=== PATIENT | male | born 1960 | race Caucasian/White ===

== ENCOUNTER → 2020-04-11 10:26 | Outpatient (CLI) | payer OTHER, SELFPAY ==
[2020-04-11 11:27] LABS: Hematocrit 42.6 % (41-53); Hemoglobin 14.7 g/dL (13.5-17.5); Mean Corpuscular HGB Conc 34.5 % (30-36); Mean Corpuscular Hemoglobin 34.7 PG (26-34); Mean Corpuscular Volume 100.7 fL (80-100); Platelet Count 181 X10^3/uL (150-400); Red Blood Cell Count 4.23 X10^6/uL (4.5-5.9); Red Cell Distribution Width 12.6 % (11.6-14.8); White Blood Cell Count 4.1 X10^3/uL (4.5-11.0)
[2020-04-11 12:01] LABS: Alanine Aminotransferase 50 IU/L (<50); Albumin 4.2 g/dL (3.5-5.0); Albumin Globulin Ratio 1.6 (1.0-2.8); Alkaline Phosphatase 114 U/L (38-126); Aspartate Aminotransferase 45 IU/L (17-59); BUN Creatinine Ratio 32.3 (6-22); Bilirubin Total 0.5 mg/dL (0.2-1.3); Blood Urea Nitrogen 21 mg/dL (9-20); Calcium 9.6 mg/dL (8.4-10.2); Carbon Dioxide 26 mmol/L (22-32); Chloride 107 mmol/L (98-107); Cholesterol 215 mg/dL (140-199); Estimated Glomerular Filt Rate > 60.0 mL/min (>60); Globulin 2.7 g/dL (1.7-4.1); Glucose 106 mg/dL (80-110); HDL Cholesterol 58 mg/dL (40-60); HEMOLYSIS < 15 (0-50); LDL Cholesterol Calculated 132 mg/dL (<100); Potassium 4.1 mmol/L (3.4-5.1); Sodium 139 mmol/L (137-145); Total Protein 6.9 g/dL (6.3-8.2); Triglycerides 125 mg/dL (35-150)
== END ==
PROVIDERS: PCP Nurse Practitioner Family; Referring Provider Nurse Practitioner Family; Visit Provider Nurse Practitioner Family
DX: Z13.6 Encounter for screening for cardiovascular disorders (principal); R09.89 Other specified symptoms and signs involving the circulatory and respiratory systems
CPT/HCPCS: 36415; 80053; 80061; 84443; 85027

== ENCOUNTER → 2020-04-23 09:32 | Outpatient (CLI) | payer OTHER, SELFPAY ==
--- NOTE | 2020-05-14 10:05 | PM.CARDMON.1 ---
Customer Service Receptionist Report Referral & Results Date Patient Seen: 04/23/20 Requesting provider: Galindo Ramirez Indication: Visual disturbances Duration of monitoring (days): 13 Diary information: There were 4 patient triggered events and 1 patient diary entry All of these events were associated with sinus rhythm alone Data: Minimum heart rate identified was 49 beats per minute at 06:05 on 04/28/2020 Maximum sinus heart rate was 151 beats per minute at 10:38 on 04/25/2020 Maximum overall heart rate was 152 beats per minute at 14:36 on 05/04/2020 during a 4 beat run of SVT/atrial tachycardia Less than 1% of identified beats or either ventricular supraventricular ectopic in origin Patient had 1 run of SVT/atrial tachycardia as above, 4 beats at 152 beats per minute 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 Above-mentioned run of SVT is more appropriately characterized as a 4 beat run of PACs.
== END ==
PROVIDERS: PCP Nurse Practitioner Family; Referring Provider Nurse Practitioner Family; Visit Provider Nurse Practitioner Family
DX: R29.898 Other symptoms and signs involving the musculoskeletal system (principal); H53.9 Unspecified visual disturbance
CPT/HCPCS: 0296T; 0298T

== ENCOUNTER → 2020-05-07 12:11 | Outpatient (CLI) | payer OTHER, SELFPAY ==
--- NOTE | 2020-05-07 12:12 | DI.MRI.S_ITS ---
PROCEDURE: MR HEAD/BRAIN WO/W CON INDICATIONS: vision disturbance, uncoordination TECHNIQUE: Noncontrast axial T1 spin echo, axial T2 fast spin echo, sagittal and axial FLAIR, coronal T2 fast spin echo, axial gradient echo, axial diffusion and ADC through the brain. After the administration of contrast, axial and coronal T1 spin echo with fat saturation through the brain. COMPARISON: None. FINDINGS: Image quality: Excellent. CSF spaces: Basal cisterns are patent. No extra-axial fluid collections. Ventricles are normal in size and shape. Brain: No midline shift. No intracranial bleeds or masses. No abnormal intracranial enhancement. There is cerebral volume loss for age. There is advanced periventricular white matter chronic small vessel ischemic change. The brainstem appears normal. Diffusion-weighted images demonstrate no acute ischemic insults. No chronic ischemic insults. Normal intravascular flow voids are present. Skull and face: Calvarial marrow is normal in signal. Orbits appear normal. Sinuses: Sinuses and mastoids appear clear. IMPRESSION: No acute intracranial finding. No abnormal intracranial enhancement. Global cerebral volume loss with chronic microvascular ischemic changes, both advanced for the patient's age. Dictated by: Lalo Renner M.D. on 05/07/2020 at 15:11 Approved by: Lalo Renner M.D. on 05/07/2020 at 15:14
== END ==
PROVIDERS: PCP Nurse Practitioner Family; Referring Provider Nurse Practitioner Family; Visit Provider Nurse Practitioner Family
DX: H53.9 Unspecified visual disturbance (principal); R29.898 Other symptoms and signs involving the musculoskeletal system
CPT/HCPCS: 70553

== ENCOUNTER → 2020-12-12 15:39 | Outpatient (CLI) | payer OTHER, SELFPAY ==
[2020-12-12] MEDS: COVID-19 VACC #1, MRNA(MOD) 100 MCG/0.5 ML VIAL IM (15:46)
== END ==
PROVIDERS: PCP Nurse Practitioner Family; Visit Provider Internal Medicine
DX: Z23 Encounter for immunization (principal)
CPT/HCPCS: 0011A; 91301

== ENCOUNTER → 2021-01-15 15:18 | Outpatient (CLI) | payer OTHER, SELFPAY ==
[2021-01-15] MEDS: COVID-19 VACC #2, MRNA(MOD) 100 MCG/0.5 ML VIAL IM (15:25)
== END ==
PROVIDERS: PCP Nurse Practitioner Family; Visit Provider Internal Medicine
DX: Z23 Encounter for immunization (principal)
CPT/HCPCS: 0012A; 91301

== ENCOUNTER 2021-04-02 10:04 | Emergency (ER) | payer OTHER, SELFPAY ==
[2021-04-02 10:16] VITALS: BP 133/81; PULSE 93; RESP 20; TEMP 37.2; O2SAT 98; BMI 28.0
--- NOTE | 2021-04-02 10:20 | DI.RAD.S_ITS ---
PROCEDURE: XR SHOULDER RT MIN 2V INDICATIONS: fall with pain TECHNIQUE: 2 views of the shoulder were acquired. COMPARISON: None. FINDINGS: Bones: No fractures or dislocations. No suspicious bony lesions. Moderate acromioclavicular and glenohumeral joint degeneration. Visualized ribs appear intact. Soft tissues: No suspicious soft tissue calcifications. IMPRESSION: No acute osseous abnormalities. Moderate degenerative joint disease. Dictated by: Amanda Awan M.D. on 04/02/2021 at 10:40 Approved by: Amanda Awan M.D. on 04/02/2021 at 10:41
--- NOTE | 2021-04-02 13:45 | ED.UPPEXIN ---
HPI - Extremity Injury (Upper) General Chief Complaint: Extremity Injury, Upper Stated Complaint: hard fall, hurt right shoulder and arm Time Seen by Provider: 04/02/21 13:41 Source: patient Mode of arrival: Ambulatory Limitations: no limitations History of Present Illness HPI narrative: 60-year-old gentleman who had a mechanical fall landing on both arms yesterday. All day had significant pain in the right shoulder with decreased mobility in the shoulder without significant swelling and no neurologic findings. Today when pain continued as he is coming to the emergency room he turn to [employer] it store and felt a sharp snap/pop in the right shoulder with complete resolution of all pain and return of full function to the shoulder with full range of motion. Related Data Home Medications Medication Instructions Recorded Confirmed ascorbic acid (vitamin C) 500 mg 500 mg PO DAILY 12/07/18 04/11/20 tablet vitamin B complex (B 1 tab PO DAILY 12/07/18 04/11/20 Complex-Vitamin B12) coenzyme Q10 30 mg capsule (CoQ-10) 30 mg PO DAILY 04/11/20 04/11/20 multivitamin 1 tab PO DAILY 04/11/20 04/11/20 omega-3 fatty acids 1,000 mg 1,000 mg PO DAILY 04/11/20 04/11/20 capsule (Fish Oil Concentrate) Previous Rx's Medication Instructions Recorded varicella-zoster glycoE [id number] 50 mcg IM ONCE #1 each 12/07/18 adj(PF) 50 mcg/0.5 mL IM susp, kit (Shingrix (PF)) rosuvastatin 5 mg tablet 5 mg PO DAILY #90 tab 04/11/20 Allergies Allergy/AdvReac Type Severity Reaction Status Date / Time zolpidem AdvReac Intermediate Hallucinati Verified 12/12/20 15:41 ng Review of Systems Review of Systems Narrative: Pertinent positive and negative findings as per HPI Remainder of review of systems is otherwise unremarkable for Constitutional: Fevers, chills, weakness ENT: No sore throat, neck pain, ear pain CV: Chest pain, palpitations, Respiratory: Cough, wheeze, dyspnea GI: Nausea, vomiting, diarrhea, : Dysuria, hematuria, Patient History Medical History Anxiety (~2017) Chicken pox (~1976) Depression (~1989) Elevated ALT measurement Encounter for screening for malignant neoplasm of colon Eye exam abnormal Hepatitis (~1983) Macrocytosis without anemia Melanoma Mixed hyperlipidemia (03/2020) Pneumothorax (~2013) Skin cancer (~2012) Temporary limb weakness Temporary visual disturbance Vision disorder Vision disturbance Family History Father Hypertension Mother Alzheimer's disease Grandfather History of heart disease Grandmother Stroke Social History Smoking Status: Current every day smoker Tobacco: How many years used: 30 quit status: considering quitting second hand exposure: Yes alcohol intake: current (A glass or 2 of wine per day) substance use type: does not use Smoking Status: Current every day smoker alcohol intake frequency: 0-2 drinks per day Substance Use Type: does not use Exam Narrative Exam Narrative: General: Alert appropriate in no acute distress Respiratory: Able to speak in full sentences, no obvious respiratory distress Skin: No obvious rashes, warm and dry Neurologic: Grossly intact no obvious asymmetries or abnormalities Psych: appropriate insight and affect, cooperative Extremity: Right shoulder is examined. There is no swelling, redness and he has non tender range of motion appreciated remainder of arms neurovascularly intact Initial Vital Signs Initial Vital Signs: Vital Signs Temperature 98.9 F 04/02/21 10:16 Pulse Rate 93 H 04/02/21 10:16 Respiratory Rate 20 04/02/21 10:16 Blood Pressure 133/81 04/02/21 10:16 Pulse Oximetry 98 04/02/21 10:16 Course Orders Ordered: ED Orders 04/02/21 10:20 XR shoulder RT min 2V Stat Vital Signs Vital signs: Vital Signs - 8 hr 04/02/21 10:16 Temperature 98.9 F Pulse Rate 93 H Respiratory Rate 20 Blood Pressure 133/81 Pulse Oximetry 98 MDM - Extremity Injury (Upper) Imaging Data XR shoulder: Radiologist's Impression: FINDINGS: Bones: No fractures or dislocations. No suspicious bony lesions. Moderate acromioclavicular and glenohumeral joint degeneration. Visualized ribs appear intact. Soft tissues: No suspicious soft tissue calcifications. IMPRESSION: No acute osseous abnormalities. Moderate degenerative joint disease. Dictated by: Amanda Awan M.D. on 04/02/2021 at 10:40 MDM Narrative Medical decision making narrative: 60-year-old gentleman with mechanical injury to the right shoulder after a fall yesterday. An abrupt snap pop with twisting the shoulder as he was coming into the emergency department with complete resolution of pain and return of full function and range of motion. I suspect he either dislocated her partially dislocated the shoulder and manage to relocated himself on his way to the emergency department. X-rays are reassuring. At this point he is pain-free and declines a sling. Encouraged him to follow-up with primary care physician or his orthopedic surgeon should he have recurrent pain or issues. He is safe discharge Discharge Plan Departure Patient Disposition: Home Clinical Impression: Injury of shoulder, right Qualifiers: Encounter type: initial encounter Qualified Code(s): S49.91XA - Unspecified injury of right shoulder and upper arm, initial encounter Instructions: DI for Shoulder Sprain Activity Restrictions/Additional Instructions: Thank you for coming in today With your description of the severe pain that got instantly better with a pop in your arm I am suspicious that you had at least a partial dislocation of your shoulder. At this point you have completely resolved that and her x-ray is very reassuring. There are no fractures. Using 400 mg of ibuprofen (2 mfeo-uoq-fwdawbd pills) and 1 Tylenol every 6 hours can be very helpful in controlling pain. If your having increasing pain or new symptoms please follow-up with your primary care physician Prescriptions: No Action ascorbic acid (vitamin C) 500 mg tablet 500 mg PO DAILY RF: 0 vitamin B complex [B Complex-Vitamin B12] tablet 1 tab PO DAILY RF: 0 Shingrix (PF) 50 mcg/0.5 mL suspension for reconstitution 50 mcg IM ONCE Qty: 1 RF: 0 rosuvastatin 5 mg tablet 5 mg PO DAILY Qty: 90 RF: 2 multivitamin Tablet 1 tab PO DAILY RF: 0 omega-3 fatty acids [Fish Oil Concentrate] 1,000 mg capsule 1,000 mg PO DAILY RF: 0 coenzyme Q10 [CoQ-10] 30 mg capsule 30 mg PO DAILY RF: 0 Referrals: Galindo Ramirez ARNP [Primary Care Provider] -
== END 2021-04-02 14:10 | disposition home or self-care (01) ==
PROVIDERS: Emergency Provider Emergency Medicine; PCP Nurse Practitioner Family
DX: S49.91XA Unspecified injury of right shoulder and upper arm, initial encounter (principal); W19.XXXA Unspecified fall, initial encounter
CPT/HCPCS: 73030; 99283

== ENCOUNTER 2025-03-11 13:17 | Emergency (ER) | payer BC, SELFPAY ==
[2025-03-11] VITALS (14 sets, daily range): BP systolic 144–165; BP diastolic 86–122; PULSE 84–122; RESP 10–42; TEMP 36.8; O2SAT 95–98; BMI 32.1
--- NOTE | 2025-03-11 13:34 | DI.CT.S_ITS ---
PROCEDURE: CT ANGIO HEAD AND NECK INDICATIONS: ataixia, ? recent stroke TECHNIQUE: After the administration of intravenous contrast, 1 mm thick sections acquired from the aortic arch through the [place] of [place]. 3-dimensional acrzlna-jnwgsfeiy-zusipmrbty (MIP) and/or volume rendering reformats were acquired of the central intracranial vasculature and neck separately. For radiation dose reduction, the following was used: automated exposure control, adjustment of mA and/or kV according to patient size. COMPARISON: None. FINDINGS: Image quality: Diagnostic. Cerebral CT Angiogram: Internal carotid arteries: No acute findings. Intracranial ICA are patent with no significant stenosis. No occlusion. No aneurysm. Anterior cerebral arteries: Unremarkable. No significant stenosis. No occlusion. No aneurysm. Middle cerebral arteries: Unremarkable. No significant stenosis. No occlusion. No aneurysm. Posterior cerebral arteries: Unremarkable. No significant stenosis. No occlusion. No aneurysm. Basilar artery: Unremarkable. No significant stenosis. No occlusion. No aneurysm. Vertebral arteries: Unremarkable as visualized. Dural venous sinuses: Unremarkable given phase of enhancement. Other: Arterial phase appearance of the brain parenchyma is unremarkable. Neck CT Angiogram: Internal carotid arteries: Unremarkable. No significant stenosis. No dissection or occlusion. Common carotid arteries: Unremarkable. No significant stenosis. No dissection or occlusion. External carotid arteries: Unremarkable. No occlusion. Vertebral arteries: Unremarkable. No significant stenosis. No dissection or occlusion. Aortic Arch and Mediastinum: Partially visualized aortic arch unremarkable without evidence of aneurysm. Origins of the great vessels unremarkable. Other: Arterial phase soft tissues of the neck and chest are unremarkable. IMPRESSION: No significant intracranial arterial abnormality is seen. No significant abnormality is seen within the arteries of the neck. Any quantitative measurements of stenosis were performed using NASCET criteria. Dictated by: Prosper Alberto M.D. on 03/11/2025 at 14:31 Approved by: Prosper Alberto M.D. on 03/11/2025 at 14:36
--- NOTE | 2025-03-11 13:34 | DI.CT.S_ITS ---
PROCEDURE: CT HEAD/BRAIN WO CON INDICATIONS: ataxia TECHNIQUE: Noncontrast 4.5 mm thick angled axial sections acquired from the foramen magnum to the vertex, with coronal and sagittal reformats. For radiation dose reduction, the following was used: automated exposure control, adjustment of mA and/or kV according to patient size. COMPARISON: [facility], MR, MR HEAD/BRAIN WO/W CON, 05/07/2020, 12:50. FINDINGS: Image quality: Diagnostic. CSF spaces: Basal cisterns are patent. No extra-axial fluid collections. The ventricles are symmetric in size and shape. Brain: No intracranial bleeds or mass effect. There is cerebral volume loss, with resultant ventricular and sulcal prominence. There are periventricular and deep white matter chronic small vessel ischemic changes. There is intracranial internal carotid artery atherosclerosis. Skull and face: Calvarium and visualized facial bones appear intact, without suspicious lesions. Sinuses: Visualized sinuses and mastoids are clear. IMPRESSION: No acute intracranial pathology. Age related volume loss and mild white matter chronic small vessel ischemic changes. Dictated by: Prosper Alberto M.D. on 03/11/2025 at 14:30 Approved by: Prosper Alberto M.D. on 03/11/2025 at 14:31
--- NOTE | 2025-03-11 13:34 | DI.RAD.S_ITS ---
PROCEDURE: XR CHEST 1V INDICATIONS: hypertension TECHNIQUE: One view of the chest was acquired. COMPARISON: None. FINDINGS: Surgical changes and devices: None. Lungs and pleura: Mild pulmonary vascular congestion. No definite focal infiltrate. No pleural effusions or pneumothorax. Mediastinum: Mediastinal contours appear normal. Heart size is enlarged. Bones and chest wall: No suspicious bony lesions. Overlying soft tissues appear unremarkable. IMPRESSION: Cardiomegaly and mild congestion. No definite focal infiltrate. No significant pleural effusion or pneumothorax. Dictated by: Prosper Alberto M.D. on 03/11/2025 at 14:18 Approved by: Prosper Alberto M.D. on 03/11/2025 at 14:19
--- NOTE | 2025-03-11 13:45 | EKG_ITS ---
[address] [address] Test Date: 2025-03-11 Pat Name: Wilmer Daniel Department: Room: Gender: Male Ear Flap Binder: KATE : 1960 Requested By: Order Number: [id number] Reading MD: Julio Byrne MD Measurements Intervals [place] Rate: 118 P: 37 MA: 170 QRS: -9 QRSD: 98 T: 44 QT: 330 QTc: 462 Interpretive Statements Sinus tachycardia Electronically Signed On 03-11-2025 13:46:55 PDT by Julio Byrne MD
[2025-03-11 13:47] LABS: Add Manual Diff / Slide Review NO; Basophils Absolute Auto 100 /uL (0-100); Basophils Percent Auto 1.2 % (0-2); Eosinophils Absolute Auto 200 /uL (0-450); Eosinophils Percent Auto 2.6 % (2-4); Hematocrit 44.9 % (41-53); Hemoglobin 15.8 g/dL (13.5-17.5); Lymphocytes Absolute Auto 1400 /uL (1100-4500); Lymphocytes Percent Auto 23.5 % (25-40); Mean Corpuscular HGB Conc 35.1 % (30-36); Mean Corpuscular Hemoglobin 35.7 PG (26-34); Mean Corpuscular Volume 101.7 fL (80-100); Monocytes Absolute Auto 500 /uL (0-900); Monocytes Percent Auto 8.6 % (3-14); Neutrophils Absolute Auto 3700 /uL (1500-7000); Neutrophils Percent Auto 64.1 % (50-75); Platelet Count 171 X10^3/uL (150-400); Red Blood Cell Count 4.42 X10^6/uL (4.5-5.9); Red Cell Distribution Width 12.6 % (11.6-14.8); White Blood Cell Count 5.7 X10^3/uL (4.5-11.0)
[2025-03-11 13:57] LABS: Alanine Aminotransferase 73 IU/L (<50); Albumin 4.8 g/dL (3.5-5.0); Albumin Globulin Ratio 1.5 (1.0-2.8); Alkaline Phosphatase 113 U/L (38-126); Aspartate Aminotransferase 76 IU/L (17-59); BUN Creatinine Ratio 22.4 (6-22); Bilirubin Total 0.9 mg/dL (0.2-1.3); Blood Urea Nitrogen 17 mg/dL (9-20); Calcium 9.8 mg/dL (8.4-10.2); Carbon Dioxide 22 mmol/L (22-32); Chloride 106 mmol/L (98-107); Estimated Glomerular Filt Rate > 60 mL/min (>60); Ethanol (ETOH) < 10 mg/dL (<10); Globulin 3.2 g/dL (1.7-4.1); Glucose 124 mg/dL (70-99); HEMOLYSIS 24 (0-50); Lipase 85 U/L (23-300); Magnesium 1.8 mg/dL (1.6-2.3); Potassium 4.3 mmol/L (3.4-5.1); Sodium 140 mmol/L (137-145)
[2025-03-11 14:09] LABS: NT-proBNP (BNP-Adult 18+) 47 pg/mL (<125); Troponin I < 0.012 ng/mL (0.01-0.034)
--- NOTE | 2025-03-11 14:12 | PC.NURSE ---
patient reports dizziness on and off for awhile, but he states he discussed it with a friend whos a provider on [facility], they recommended being seen.
--- NOTE | 2025-03-11 15:53 | DI.MRI.S_ITS ---
PROCEDURE: MR HEAD/BRAIN WO CON INDICATIONS: acute ataxia, medical work up neg TECHNIQUE: Non-contrast axial T1 spin echo, axial T2 fast spin echo, sagittal and axial FLAIR, coronal T2 fast spin echo, axial gradient echo, axial diffusion and ADC through the brain. COMPARISON: [facility], CT, CT HEAD/BRAIN WO CON, 03/11/2025, 14:13. FINDINGS: Image quality: Excellent. CSF spaces: Ventricles appear symmetric in size and shape. Basal cisterns are patent. No extra-axial fluid collections. Brain: No intracranial bleeds or mass effects. There is cerebral volume loss for age. There are moderate periventricular and deep white matter chronic small vessel ischemic changes. Brainstem appears normal. Diffusion-weighted images show no acute infarct. No chronic ischemic insults. Normal intravascular flow voids are present. Skull and face: Calvarial bone marrow is normal in signal. Orbits are normal. Sinuses: Sinuses and mastoids are clear. IMPRESSION: 1. No acute intracranial abnormality. 2. Age-related volume loss and moderate small vessel ischemic change. Dictated by: Bryant Sainz M.D. on 03/11/2025 at 17:09 Approved by: Bryant Sainz M.D. on 03/11/2025 at 17:10
[2025-03-11 15:59] LABS: Appearance Urine UA CLEAR; Bilirubin Urine UA NEGATIVE (NEGATIVE); Color Urine UA YELLOW; Glucose Urine UA NEGATIVE (Negative); Ketones Urine UA 1+ (NEGATIVE); Leukocyte Esterase Urine UA NEGATIVE (NEGATIVE); Nitrite Urine UA NEGATIVE (Negative); Occult Blood Urine UA NEGATIVE (Negative); Protein Urine UA NEGATIVE (Negative)
[2025-03-11] MEDS: METOPROLOL IR 25 MG TABLET PO (16:05)
[2025-03-11] MEDS: SODIUM CHLORIDE 0.9% 1,000 ML 1000 ML IV (16:05)
[2025-03-11 16:08] LABS: Bacteria Urine Occasional (0-1); Culture Indicated Urine Cult Not Indicated; RBC Urine 0-1/HPF (0-5/HPF); Squamous Epithelial Cell Urine 0-1 /HPF (0-5/HPF); Urine Volume 10mL (spun); WBC Urine 0-1/HPF (0-5/HPF)
--- NOTE | 2025-03-11 17:57 | ED.GENADULT ---
HPI - General Adult General Chief complaint: Hypertension Stated complaint: High blood pressure x 1 day Time Seen by Provider: 03/11/25 13:18 Source: patient Mode of arrival: Ambulatory History of Present Illness HPI narrative: 64-year-old gentleman who lives [place] has not seen a medical provider for at least 6 years, has not been taking any medications for his previously diagnosed hypertension, hyperlipidemia with continued tobacco and alcohol use presents complaining that he can not stand up straight. It has been intermittently present for the last month and half he tends to lean toward the left. He is unable to stand straight without falling to the left. Blood pressure on arrival is 200/100 and he is in a sinus tach at 123. He is not complaining of chest pain shortness of breath. Related Data Home Medications ?Medication ?Instructions ?Recorded ?Confirmed ascorbic acid (vitamin C) 500 mg 500 mg PO DAILY 12/07/18 04/11/20 tablet vitamin B complex (B 1 tab PO DAILY 12/07/18 04/11/20 Complex-Vitamin B12 tablet) coenzyme Q10 30 mg capsule (CoQ-10) 30 mg PO DAILY 04/11/20 04/11/20 multivitamin 1 tab PO DAILY 04/11/20 04/11/20 omega-3 fatty acids 1,000 mg 1,000 mg PO DAILY 04/11/20 04/11/20 capsule (Fish Oil Concentrate) Previous Rx's ?Medication ?Instructions ?Recorded varicella-zoster glycoE [id number] 50 mcg IM ONCE #1 ea 12/07/18 adj(PF) 50 mcg/0.5 mL IM susp, kit (Shingrix (PF)) rosuvastatin 5 mg tablet 5 mg PO DAILY #90 tabs 04/11/20 metoprolol tartrate 50 mg tablet 50 mg PO BID #120 tabs 03/11/25 Allergies Allergy/AdvReac Type Severity Reaction Status Date / Time zolpidem AdvReac Intermediate Hallucinati Verified 03/11/25 13:28 ng Patient History Medical History Anxiety (~2017) Chicken pox (~1976) Depression (~1989) Elevated ALT measurement Encounter for screening for malignant neoplasm of colon Eye exam abnormal Hepatitis (~1983) Macrocytosis without anemia Melanoma Mixed hyperlipidemia (03/2020) Pneumothorax (~2013) Skin cancer (~2012) Temporary limb weakness Temporary visual disturbance Vision disorder Vision disturbance Family History Father Hypertension Mother Alzheimer's disease Grandfather History of heart disease Grandmother Stroke Social History Smoking Status: Current every day smoker Tobacco: How many years used: 30 quit status: considering quitting second hand exposure: Yes alcohol intake: current substance use type: does not use Smoking Status: Current every day smoker tobacco type: cigarettes alcohol intake frequency: 0-2 drinks per day Alcohol type: wine Exam Initial Vital Signs Initial Vital Signs: Vital Signs Temperature 98.2 F 03/11/25 13:28 Pulse Rate 110 H 03/11/25 13:28 Respiratory Rate 18 03/11/25 13:28 Blood Pressure 160/94 H 03/11/25 13:28 Pulse Oximetry 96 03/11/25 13:28 Oxygen Delivery Method Room Air 03/11/25 13:28 General: Chronically ill-appearing but in no acute distress. Able to give a complete and coherent history. HEENT: Moist mucous membranes, normal sclera with reactive pupils, Respiratory: Lungs are clear to auscultation, no wheezing no rales no rhonchi. Full and symmetrical air movement Cardiac: Tachycardic but otherwise Regular rate and rhythm no murmurs no bruits Abdomen: Soft, nontender, no rebound or guarding, no flank pain Neurologic: Wide-based antalgic gait, stands and falls to the left, does not have any other localizing symptoms. No nystagmus, no paresthesias Extremities: No trauma, Psych: Cooperative, appropriate insight and affect Course Orders Ordered: ED Orders 03/11/25 13:34 CT angio head and neck Stat CT head/brain wo con Stat XR chest 1V Stat EKG-12 Lead Stat 03/11/25 13:40 Complete Blood Count AUTO DIFF Stat Comprehensive Metabolic Panel Stat Ethanol (ETOH) Stat Lipase Stat Magnesium Stat NT-proBNP (BNP-Adult 18+) Stat Troponin I Stat 03/11/25 15:10 Urinalysis and Microscopic Stat 03/11/25 15:53 MR head/brain wo con Stat Discontinued Medications Sodium Chloride (Normal Saline 0.9%) 1,000 mls @ 1,000 mls/hr IV BOLUS ONE Stop: 03/11/25 16:52 Last Admin: 03/11/25 16:05 Dose: 1,000 mls/hr Documented By: ANANYA Metoprolol Tartrate (Metoprolol Ir 25 Mg Tablet) 25 mg PO NOW ONE Stop: 03/11/25 15:54 Last Admin: 03/11/25 16:05 Dose: 25 mg Documented By: ANANYA Vital Signs Vital signs: Vital Signs - 8 hr 03/11/25 13:28 03/11/25 13:52 03/11/25 13:52 Temperature 98.2 F Pulse Rate 110 H 121 H Respiratory Rate 18 Blood Pressure 160/94 H 162/95 H Pulse Oximetry 96 97 Oxygen Delivery Method Room Air 03/11/25 14:00 03/11/25 14:00 03/11/25 14:22 Temperature Pulse Rate 122 H Respiratory Rate 17 Blood Pressure 159/97 H 160/103 H Pulse Oximetry 97 Oxygen Delivery Method 03/11/25 14:22 03/11/25 14:30 03/11/25 14:30 Temperature Pulse Rate 120 H 114 H Respiratory Rate 18 16 Blood Pressure 155/96 H Pulse Oximetry 98 98 Oxygen Delivery Method 03/11/25 15:00 03/11/25 15:00 03/11/25 15:58 Temperature Pulse Rate 110 H Respiratory Rate 10 L Blood Pressure 144/86 H 163/87 H Pulse Oximetry 97 Oxygen Delivery Method 03/11/25 15:58 03/11/25 16:00 03/11/25 16:00 Temperature Pulse Rate 117 H 120 H Respiratory Rate 16 20 Blood Pressure 159/99 H Pulse Oximetry 97 96 Oxygen Delivery Method Room Air 03/11/25 17:07 03/11/25 17:10 03/11/25 17:10 Temperature Pulse Rate 99 H 98 H Respiratory Rate 21 17 Blood Pressure 165/122 H 165/122 H Pulse Oximetry 97 96 Oxygen Delivery Method 03/11/25 17:30 03/11/25 17:40 03/11/25 17:40 Temperature Pulse Rate 92 H 96 H Respiratory Rate 32 H 42 H Blood Pressure 161/100 H Pulse Oximetry 97 95 Oxygen Delivery Method Medical Decision Making Lab Data 03/11/25 13:40 03/11/25 13:40 Labs: Lab Results 06/30/25 06/30/25 Range/Units 13:40 15:10 WBC 5.7 (4.5-11.0) X10^3/uL RBC 4.42 L (4.5-5.9) X10^6/uL Hgb 15.8 (13.5-17.5) g/dL Hct 44.9 (41-53) % MCV 101.7 H (80-100) fL MCH 35.7 H (26-34) PG MCHC 35.1 (30-36) % RDW 12.6 (11.6-14.8) % Plt Count 171 (150-400) X10^3/uL Neut % (Auto) 64.1 (50-75) % Lymph % (Auto) 23.5 L (25-40) % Logan % (Auto) 8.6 (3-14) % Eos % (Auto) 2.6 (2-4) % Baso % (Auto) 1.2 (0-2) % Neut # (Auto) 3700 (6169-6987) /uL Lymph # (Auto) 1400 (3729-5302) /uL Logan # (Auto) 500 (0-900) /uL Eos # (Auto) 200 (0-450) /uL Baso # (Auto) 100 (0-100) /uL Sodium 140 (137-145) mmol/L Potassium 4.3 (3.4-5.1) mmol/L Chloride 106 (98-107) mmol/L Carbon Dioxide 22 (22-32) mmol/L BUN 17 (9-20) mg/dL Creatinine 0.76 (0.66-1.25) mg/dL Estimated GFR > 60 (>60) mL/min BUN/Creatinine Ratio 22.4 H (6-22) Glucose 124 H (70-99) mg/dL Calcium 9.8 (8.4-10.2) mg/dL Magnesium 1.8 (1.6-2.3) mg/dL Total Bilirubin 0.9 (0.2-1.3) mg/dL AST 76 H (17-59) IU/L ALT 73 H (<50) IU/L Alkaline Phosphatase 113 (38-126) U/L Troponin I < 0.012 (0.01-0.034) ng/mL NT-Pro-B Natriuret Pep 47 (<125) pg/mL Total Protein 8.0 (6.3-8.2) g/dL Albumin 4.8 (3.5-5.0) g/dL Globulin 3.2 (1.7-4.1) g/dL Albumin/Globulin Ratio 1.5 (1.0-2.8) Lipase 85 (23-300) U/L Urine Color Yellow Urine Appearance Clear Urine pH 7.0 (4.5-8.0) Ur Specific [place] 1.010 (1.000-1.035) Urine Protein Negative (Negative) Urine Glucose (UA) Negative (Negative) g/dL Urine Ketones 1+ H (NEGATIVE) Urine Occult Blood Negative (Negative) Urine Nitrate Negative (Negative) Urine Bilirubin Negative (NEGATIVE) Urine Urobilinogen 1.0 (0.2) E.U./dL Ur Leukocyte Esterase Negative (NEGATIVE) Urine RBC 0-1/hpf (0-5/HPF) Urine WBC 0-1/hpf (0-5/HPF) Ur Squamous Epith Cells 0-1 /hpf (0-5/HPF) Urine Bacteria Occasional (0-1) (None) Ur Culture Indicated? Cult not indicated Vol Urine Centrifuged 10ml (spun) Ethyl Alcohol < 10 (<10) mg/dL Imaging Data MR brain: Radiologist's Impression: PROCEDURE: MR HEAD/BRAIN WO CON INDICATIONS: acute ataxia, medical work up neg TECHNIQUE: Non-contrast axial T1 spin echo, axial T2 fast spin echo, sagittal and axial FLAIR, coronal T2 fast spin echo, axial gradient echo, axial diffusion and ADC through the brain. COMPARISON: [facility], CT, CT HEAD/BRAIN WO CON, 03/11/2025, 14:13. FINDINGS: Image quality: Excellent. CSF spaces: Ventricles appear symmetric in size and shape. Basal cisterns are patent. No extra-axial fluid collections. Brain: No intracranial bleeds or mass effects. There is cerebral volume loss for age. There are moderate periventricular and deep white matter chronic small vessel ischemic changes. Brainstem appears normal. Diffusion-weighted images show no acute infarct. No chronic ischemic insults. Normal intravascular flow voids are present. Skull and face: Calvarial bone marrow is normal in signal. Orbits are normal. Sinuses: Sinuses and mastoids are clear. IMPRESSION: 1. No acute intracranial abnormality. 2. Age-related volume loss and moderate small vessel ischemic change. Dictated by: Bryant Sainz M.D. on 03/11/2025 at 17:09 [facility] Narrative Medical decision making narrative: CC: Can not stand up straight Complicating co[place]bidities[place] no medical care for 6 years, untreated hypertension, hyperlipidemia, tobacco use and alcohol use Data collected from: patient Differential considered: Stroke, hypertensive crisis, acute alcohol intoxication, Wernicke-Korsakoff syndrome, he had electrolyte abnormalities Exam documented above, pertinent findings include: Somewhat disheveled, difficulty standing, falls to the left Lab Test results independently reviewed as above. Pertinent findings: CBC is unremarkable with MCV high at 101.7 Chemistries show normal renal function, minimally elevated AST and ALT at 76 and 73 Troponin is not elevated BNP is not elevated Alcohol level is undetectable Lipase is appropriate Independently reviewed EKG: Sinus tach at 1:08 a.m., no acute ischemic changes Imaging studies independently reviewed: Chest x-ray is notable for mild cardiomegaly and congestion without focal infiltrates. Head CT shows no intracranial bleed or mass effect. Cerebral volume loss with resultant ventricular and sulcal prominence. There are periventricular and deep white matter chronic small-vessel ischemic changes. There is intracranial internal carotid atherosclerosis. No obvious acute pathology CTA of the head and neck shows no significant intracranial arterial abnormality Treatments: 1 L of fluid, 25 mg of metoprolol tartrate Re-evaluations: After the fluid and with blood pressure coming down after the metoprolol patient's feels dramatically better and would like to go home. His ataxia is little changed. Discussion: 64-year-old gentleman who presents with a month of increasing ataxia. Workup today shows normal brain CT, head and neck CTA, brain MRI. No evidence of stroke mass or hydrocephalus. Blood work is actually reassuring, mild macrocytosis and slightly elevated AST and ALT consistent with his discussion of alcohol intake. He states that he has at least a glass of wine every night, is never been worried about his drinking your tried to cut back, he does not have withdrawal symptoms if he does not drink. He states the last time he went for more than a week without alcohol was a few months ago when he was not feeling well. He does note his blood pressure has been significantly elevated again has not had any medical care for almost 5 years and has been on blood pressure medications in the past. He believes all of his symptoms are related to his high blood pressure. I suspect that there maybe a component of cerebellar ataxia related to his alcohol use. We had a long discussion regarding hospitalization and lack of diagnosis today. With shared decision-making he would much prefer to go back to [place] in anticipation of big plans for the 15 of March weekend. He would like to fill a prescription for blood pressure medications and I will start him on metoprolol tartrate 50 mg b.i.d.. 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 Currently takes a multivitamin we will ask him to continue to do so and may also suggest he began taking thiamine supplement as well. Fall we recommend follow up with the primary care physician may benefit from neurologic consultation in the future as well. He will be discharged home Discharge Plan Departure Patient Disposition: Home Clinical Impression: Ataxia, Essential hypertension Instructions: DI for High Blood Pressure Activity Restrictions/Additional Instructions: Thank you for coming in today With the difficulty in walking I was concerned about a stroke. We did CT scan of your brain, angiogram of the blood vessels to your head and your neck and an MRI of your brain and it does not look like you have had a stroke. There is a process called cerebellar ataxia which gets him the same on even walk. This can be associated with alcohol use. I would recommend that you consider stopping alcohol altogether Going to give you a prescription for your blood pressure, metoprolol 50 mg morning and night. You do need to check your blood pressures at least 3 or 4 times a week to know how this medication is working. You also need to reestablish care with a primary care physician to make sure that your blood pressure is better controlled. You may well benefit from a consult with a neurologist to help figure out why you have this unsteady gait I would recommend continuing a multivitamin and making sure that it contains thiamine or B1. If it does not adding an extra dose of that can be helpful as well If you find that you are getting worse or develop any new symptoms, please feel free to return to the emergency department for further evaluation. Prescriptions: New metoprolol tartrate 50 mg tablet 50 mg PO BID Qty: 120 2RF No Action ascorbic acid (vitamin C) 500 mg tablet 500 mg PO DAILY vitamin B complex [B Complex-Vitamin B12] tablet 1 tab PO DAILY Shingrix (PF) 50 mcg/0.5 mL suspension for reconstitution 50 mcg IM ONCE Qty: 1 0RF Rx Instructions: as a single dose rosuvastatin 5 mg tablet 5 mg PO DAILY Qty: 90 2RF multivitamin Tablet 1 tab PO DAILY omega-3 fatty acids [Fish Oil Concentrate] 1,000 mg capsule 1,000 mg PO DAILY coenzyme Q10 [CoQ-10] 30 mg capsule 30 mg PO DAILY Stand Alone Forms: Patient Portal/API
== END 2025-03-11 19:02 | disposition home or self-care (01) ==
PROVIDERS: Emergency Provider Emergency Medicine
DX: R27.0 Ataxia, unspecified (principal); I10 Essential (primary) hypertension
CPT/HCPCS: 36415; 70450; 70496; 70498; 70551; 71045; 80053; 80320; 81001; 83690; 83735; 83880; 84484; 85025; 93005; 93010; 96360; 96361; 99284; Q9967

== ENCOUNTER → 2025-07-11 11:02 | Outpatient (CLI) | payer BC, SELFPAY ==
--- NOTE | 2025-07-11 11:03 | DI.CT.S_ITS ---
PROCEDURE: CT LUNG LOW DOSE SCREENING INDICATIONS: ATAXIA/ASSISTED SMOKER. AORTIC ANEURYSM SCREENING TECHNIQUE: Noncontrast 2.0-2.5 mm thick sections acquired from the pulmonary apices to the posterior costophrenic angles. 7 mm thick axial MIP, and 5 mm coronal and sagittal reformats were then acquired. For radiation dose reduction, the following was used: automated exposure control, adjustment of mA and/or kV according to patient size. COMPARISON: [facility], CR, XR CHEST 1V, 03/11/2025, 13:35. FINDINGS: Image quality: Diagnostic. Lower Neck: No enlarged lymph nodes. Thyroid: No thyroid nodules which require sonographic follow up, per consensus guidelines. Axillae: No enlarged lymph nodes. Chest Wall: Unremarkable. Bones: Unremarkable. Lungs and Pleura: No pneumothorax or pleural effusions. No consolidation or suspicious nodules. Heart: Heart size is normal. No pericardial effusion. Thoracic Vessels: The aorta and pulmonary arteries demonstrate normal size. Mediastinum and [place]ann[place]: No enlarged lymph nodes. Esophagus: No wall thickening. No hiatal hernia. Upper Abdomen: Visualized upper abdomen solid organs and bowel loops appear normal except for relatively prominent fatty infiltration within the liver. IMPRESSION: No suspicious pulmonary nodules. LUNG-RADS 1; continued annual screening, if eligible. Clinically Significant Non-pulmonary Findings: Relatively prominent fatty infiltration within the partially visualized liver. Dictated by: Mayco Joyce M.D. on 07/11/2025 at 12:19 Approved by: Mayco Joyce M.D. on 07/11/2025 at 12:21
--- NOTE | 2025-07-11 11:04 | DI.US.S_ITS ---
PROCEDURE: US ABD AORTA ANEURYSM SCREEN INDICATIONS: ATAXIA/STAGE ELECTRICIAN HELPER SMOKER. AORTIC ANEURYSM SCREENING TECHNIQUE: Real time scanning was performed of the aorta and iliac arteries, with image documentation. COMPARISON: None. FINDINGS: Aorta: Proximal aortic diameter measures 2.3 cm. Mid-aorta measures 2.3 cm. Distal aortic diameter is 2.2 cm. Iliac arteries: Right common iliac artery measures 1.5 cm. Left common iliac artery measures 1.5 cm. Fatty infiltration of the liver IMPRESSION: No aneurysm seen. Dictated by: Tony Johnson M.D. on 07/11/2025 at 19:09 Approved by: Tony Johnson M.D. on 07/11/2025 at 19:10
--- NOTE | 2025-07-11 11:04 | DI.US.S_ITS ---
PROCEDURE: US ART LOW EXT BILAT W/EVERTON INDICATIONS: ATAXIA/SNF SMOKER. AORTIC ANEURYSM SCREENING TECHNIQUE: Color and pulse Doppler interrogation was performed of both lower extremity arterial systems, with image documentation. COMPARISON: None. FINDINGS: Right lower extremity: Common femoral artery: 107 cm/sec, with triphasic flow. Deep femoral artery: 94 cm/sec, with triphasic flow. Proximal superficial femoral artery: 93 cm/sec, with triphasic flow. Mid superficial femoral artery: 93 cm/sec, with triphasic flow. Distal superficial femoral artery: 50 cm/sec, with triphasic flow. Popliteal artery: 49 cm/sec, with triphasic flow. Posterior tibial artery: 61 cm/sec, with triphasic flow. Anterior tibial artery/dorsalis pedis: 87 cm/sec, with triphasic flow. Vera-scale imaging description: Moderate amount of plaque Left lower extremity: Common femoral artery: 92 cm/sec, with triphasic flow. Deep femoral artery: 98 cm/sec, with triphasic flow. Proximal superficial femoral artery: 112 cm/sec, with triphasic flow. Mid superficial femoral artery: 77 cm/sec, with triphasic flow. Distal superficial femoral artery: 65 cm/sec, with triphasic flow. Popliteal artery: 82 cm/sec, with triphasic flow. Posterior tibial artery: 74 cm/sec, with triphasic flow. Anterior tibial artery/dorsalis pedis: 76 cm/sec, with triphasic flow. Vera-scale imaging description: Moderate amount of plaque IMPRESSION: 1. Atherosclerotic changes, no signs of significant focal stenosis. 2. Normal EVERTON value of 1.05 bilaterally. Dictated by: Tony Johnson M.D. on 07/11/2025 at 19:11 Approved by: Tony Johnson M.D. on 07/11/2025 at 19:13
== END ==
PROVIDERS: PCP Registered Nurse; Referring Provider Registered Nurse; Visit Provider Registered Nurse
DX: Z13.6 Encounter for screening for cardiovascular disorders (principal); Z12.2 Encounter for screening for malignant neoplasm of respiratory organs; F17.200 Nicotine dependence, unspecified, uncomplicated; K76.0 Fatty (change of) liver, not elsewhere classified; R27.0 Ataxia, unspecified
CPT/HCPCS: 71271; 76706; 93922; 93925

== ENCOUNTER → 2025-07-11 13:21 | Outpatient (CLI) | payer BC, SELFPAY ==
--- NOTE | 2025-07-11 13:22 | DI.ECHO.S_ITS ---
[facility] : : [address] : : [place] : : [id number] : : Phone: [phone] Echocardiogram Report + + :Name: KENJI MORGAN Study Date: 07/11/2025 Height: 68 in : :[facility] ReadingLocation: Weight: 215 lb : : Gender: Male BSA: 2.1 m2 : :: 1960 Age: 65 yrs BP: 140/91 mmHg: :Reason For Study: Ataxia : :Ordering Physician: EZRA, : :DIAMOND Performed By: Jayesh Tam : :Referring: DIAMOND MUNGUIA : + + Interpretation Summary The left ventricle is normal in size and wall thickness. Left ventricular systolic function is normal. The ejection fraction is estimated to be 55-60%. The right ventricle is normal in size and function. No significant valvular pathology seen. The IVC is of normal diameter and collapses greater than 50% with a sniff. This suggests a low right atrial pressure of 3 mm Hg. Procedure: A two-dimensional transthoracic echocardiogram with color flow and Doppler was performed. The study quality was technically adequate. There is no prior echocardiogram noted for this patient. The patient was in normal sinus rhythm during the exam. Left Ventricle: The left ventricle is normal in size and wall thickness. There is no thrombus. Left ventricular systolic function is normal. The ejection fraction is estimated to be 55-60%. There are no focal wall motion abnormalities. Grade I diastolic dysfunction with normal left atrial pressure. Right Ventricle: The right ventricle is normal in size and function. Atria: The left atrial size is normal. Right atrial size is normal. There is no Doppler evidence for an interatrial shunt. Mitral Valve: The mitral valve leaflets appear to open well. There is no mitral valve stenosis. There is trace mitral regurgitation. Aortic Valve: The aortic valve is trileaflet. The aortic valve opens well. The aortic valve is slightly calcified. There is no aortic valve stenosis. No aortic regurgitation is present. Tricuspid Valve: The tricuspid valve leaflets are thin and pliable. There is trace tricuspid regurgitation. Pulmonary artery pressures cannot be estimated because of the lack of a measurable TR jet velocity but the IVC suggests a CVP of around 3 mmHg. Pulmonic Valve: The pulmonic valve is not well seen, but is grossly normal. There is trace pulmonic regurgitation. Great Vessels: The aortic root is normal size. The ascending aorta is normal in size. The pulmonary artery is normal size. The IVC is of normal diameter and collapses greater than 50% with a sniff. This suggests a low right atrial pressure of 3 mm Hg. Pericardium/ Pleura There is no pericardial effusion. MMode/2D Measurements & Calculations LVIDd: 4.8 cm LVOT diam: 2.4 cm LVIDs: 3.4 cm Ao root diam: 3.5 cm FS: 29.2 % asc Aorta Diam: 3.4 cm IVSd: 0.99 cm LVPWd: 1.0 cm LV linder. diameter/BSA (cm/m^2): 2.3 LV sys. diameter/BSA (cm/m^2): 1.6 LA A2 area: 22.4 cm2 IVC diam: 1.2 cm LA A4 area: 18.4 cm2 LA length (vol): 5.6 cm LA vol: 62.3 ml LA vol index: 29.6 ml/m2 RVD1 (basal): 2.3 cm RVD2 (mid): 1.8 cm TAPSE: 2.0 cm Doppler Measurements & Calculations Ao V2 max: 217.2 cm/sec LVOT Max Pedro: 91.8 cm/sec Ao V2 mean: 162.3 cm/sec LV V1 max P.4 mmHg Ao max P.9 mmHg LV V1 VTI: 17.9 cm Ao mean P.4 mmHg OBED(I,D): 2.1 cm2 Ao V2 VTI: 39.8 cm OBED(V,D): 1.9 cm2 sev ratio: 0.45 OBED indexed to BSA (cm^2/m^2): 0.97 MV E max pedro: 59.0 cm/sec SV(LVOT): 81.8 ml MV A max pedro: 87.9 cm/sec MV E/A: 0.67 MV dec time: 0.15 sec Reading Physician:04:40 PM
== END ==
LOC: ECHO 13:22
PROVIDERS: PCP Registered Nurse; Referring Provider Registered Nurse; Visit Provider Registered Nurse
DX: I51.7 Cardiomegaly (principal); Z13.6 Encounter for screening for cardiovascular disorders; Z12.2 Encounter for screening for malignant neoplasm of respiratory organs; F17.200 Nicotine dependence, unspecified, uncomplicated; K76.0 Fatty (change of) liver, not elsewhere classified; R27.0 Ataxia, unspecified
CPT/HCPCS: 71271; 76706; 93306; 93922; 93925